=== PATIENT | female | born 1940 | race Caucasian/White ===

== ENCOUNTER 2023-06-01 16:15 | Emergency (ER) | payer MEDICARE, OTHER, SELFPAY ==
[2023-06-01 16:18] VITALS: BP 114/87
[2023-06-01 16:36] LABS: % Basophils 0.6 % (0-2); % Eosinophils 2.6 % (0-6); % Immature Granulocytes 0.4 % (0-0.5); % Monocytes 9.2 % (1.7-9.3); % Neutrophils 54.2 % (42.2-75.2); Absolute Eosinophils 0.1 10^3/uL (0-0.7); Absolute Lymphocytes 1.7 10^3/uL (1.2-3.4); Absolute Monocytes 0.5 10^3/uL (0.1-0.6); Absolute Neutrophils 2.8 10^3/uL (1.4-6.5); Hemoglobin 15.1 g/dL (12.0-16.0); Mean Corp Hgb Conc. 35.1 g/dL (33.0-37.0); Mean Corpuscular Hgb 30.4 pg (27.0-31.0); Mean Corpuscular Volume 86.5 fL (81.0-99.0); Mean Platelet Volume 9.4 fL (7.4-10.4); Nucleated Red Blood Cells % 0 %; Platelet Count 177 10^3/uL (130-400); Red Blood Cell Count 4.97 10^6/uL (4.20-5.40); Red Cell Dist. Width 13.5 % (11.5-14.5); White Blood Cell Count 5.1 10^3/uL (4.8-10.8)
[2023-06-01 16:49] LABS: ALT (SGPT) 31 U/L (0-35); AST (SGOT) 42 U/L (14-36); Albumin 4.5 g/dl (3.5-5.0); Alkaline Phosphatase 86 U/L (38-126); Blood Urea Nitrogen 27 mg/dl (7-17); Calcium 9.2 mg/dl (8.4-10.2); Carbon Dioxide 29 mmol/L (22-30); Chloride 103 mmol/L (98-107); Glucose 126 mg/dl (70-99); Potassium 3.7 mmol/L (3.5-5.1); Sodium 137 mmol/L (135-145); Total Protein 7.5 g/dl (6.3-8.2); eGFR > 60.00
[2023-06-01 17:42] VITALS: BMI 23.8
[2023-06-01 17:45] VITALS: BP 152/55
[2023-06-01] MEDS: NSS 500 IV (19:12)
--- NOTE | 2023-06-01 20:58 | ED.GENMED ---
History of Present Illness
General
Chief Complaint: Rectal Bleeding
Source: patient
Exam Limitations: none
Time Seen by Provider: 06/01/23 17:55
Nursing documentation reviewed up to this point in time: agreed with
Travel History
Have you had any contact with someone who has COVID-19?: No
Do you have any symptoms of coronavirus? Fever > 100 degrees, chills, cough, shortness of breath, sore throat, loss of taste or smell, muscle aches, or headache?: No
History of Present Illness
History of Present Illness:
PT IS A 82 Y/O F
h/o chronic ocnstipation/bowel issues,
previous SBO, divertic, IBS
followed by GI
cad with stents, cabg, pe not anticoagulated.
here with black stool for about 2 weeks
but in the past 1 week she has had some trouble controlling her bowels
usually she has some constipation but she has had more loose bowels and troule getting to he bathroom in time
sounds as if the gave her a dose of immodium and pepto together a few days ago
she gets an intermittent crampy lower abd pain at times
because the stool was dark, they called pcp who recommended she come in
Past History
Past History
ED Past Medical History: CAD, HTN and Other (irritable bowel, diverticulosis/diverticulitis, DVT, GI bleed)
ED Past Surgical History: Appendectomy, Cardiac (CABG 1997), Cholecystectomy, Orthopedic (chronic bilateral 'knee problems' sees Dr. Sanon.) and Other (has had 5 cardiac stents)
Social History
Tobacco: Non-smoker
Alcohol: None
Drug: None
Personal:
Living: with family
Employment: Retired
Family History
Family History: Other (Noncontributory)
Review of Systems
Review of Systems
Allergies reviewed?: Yes
All Other Systems: Not applicable
Phy Exam
Physical Exam
Physical Exam:
GENERAL: Alert , in no apparent distress
EYE: pupils equal and reactive
NECK: Supple
ENT: o/p clr, mmm.
CARDIAC: Regular rate and rhythm .
LUNGS: Clear breath sounds bilaterally, no acute respiratory distress, no wheezes/rales/rhonchi
ABDOMEN: Soft, without focal tenderness, no r/g, no cvat, normal bowel sounds
rectal: dark brown stool HEME NEGATIVE
NEUROLOGICAL: Alert and oriented, no focal neuro deficits
SKIN: Warm and dry, skin intact.
MUSCULOSKELETAL: No edema, well perfused. neg katelynn's sign
PSYCH: Normal and appropriate interaction.
Course
Orders/Labs/Results
Orders:
Orders
06/01/23 16:27
Complete Blood Count/With Diff Urgent
Comprehensive Metabolic Panel Urgent
06/01/23 18:55
CT Abd/Pel (IV only)-DH only Urgent
Comment:
Reason For Exam: crampy lower abd pain and dark stool
0.9% Sodium Chloride 500 ml [Nss] 500 ml IV BOLUS
Abnormal Lab Results
06/01/23
16:27
BUN 27 H mg/dl
(7-17)
Glucose 126 H mg/dl
(70-99)
AST 42 H U/L
(14-36)
06/01/23 16:27
06/01/23 16:27
Vital Signs
Initial and Last Documented VS:
Initial Vital Signs
Temp Pulse Resp BP Pulse Ox
98.3 F 66 16 114/87 98
06/01/23 16:18 06/01/23 16:18 06/01/23 16:18 06/01/23 16:18 06/01/23 16:18
Last Documented Vital Signs
Temp Pulse Resp BP Pulse Ox
98.1 F 62 20 159/69 97
06/01/23 22:00 06/01/23 22:00 06/01/23 22:00 06/01/23 22:00 06/01/23 22:00
MDM/Problems Addressed
Differential Diagnosis Includes:
rectal bleeding, PUD, IBS, colitis, divertic
MDM/Problems Addressed:
82 y/o F with h/o chronic constipation/IBS
here with black stool for a few weeks
looser than normla
tried a dose of pepto and imodium
no incontinence really but cannot sometimes make it to the bathroom on time
no urinary incintonence, fever, distention, vomiting, fever
pt is not anticoagulated
on exam she is well apearing
she has dark stool which is HEME NEG
hg is [address] scan showed mod stool in colon, diverticulosis without itisi
suepcte pt is having leakage of stool around her constipation
pt concnered that she isn't able to get appt with her GI
i reached out to dr mckee who will get office a note about it
d/c home
*Critical Care Note
Total Time (30-74mins, 75-104mins- exclusive of procedures): Not Applicable
ED Attending Note
-
Portions of this chart may have been created with voice recognition software.� Occasional wrong word or��sound alike� substitutions may have occurred due to the inherent limitations of voice recognition software.
Discharge Plan
Departure
Patient Disposition: Home (Routine Discharge)
Date of Disposition: 06/01/23
Time of Disposition: 21:51
Patient with high blood pressure during this ER visit?: No
Condition: Fair
Covid-19: Not Applicable
Discharge Problem:
Constipation
Instructions: Constipation, Adult (DC)
Prescriptions:
No Action
Acebutolol
400 mg PO DAILY
Amlodipine
10 mg PO DAILY
Moo
81 mg PO DAILY
Hydrochlorothiazide
50 mg PO DAILY
Lipitor
80 mg PO DAILY
Polyethylene Glycol
1 dose PO PRN PRN (Reason: constipation)
Patient Comments:
pt takes 3350
hydrocodone-acetaminophen [Vicodin] 1 EACH tablet
1 tab PO Q6HPRN PRN (Reason: right knee and hip pain) Qty: 6 0RF
multivitamin [Daily Multiple] 1 EACH tablet
1 ea PO DAILY
pantoprazole 40 MG tablet,delayed release (DR/EC)
40 mg PO DAILY Qty: 30 0RF
Referrals:
NONE,* [Active] -
Activity Restrictions/Additional Instructions:
WE ARE NOT SURE WHY YOU HAVE DARK STOOL
IT TESTED NEGATIVE FOR BLOOD
YOUR CAT SCAN SHOWS NO BOWEL OBSTRUTION BUT YOU HAVE A LOT OF STOOL IN YOUR COLON
YOU HAVE DIVERTICULOSIS BUT NOT DIVERTICULIITIS
THERE WERE OTHER INCIDENTAL FINDINGS ON YOUR CAT SCAN THAT CAN BE FOLLOWED UP OUTPATIENT
I SPOKE WITH DR. MCKEE FROM GI TO GET MESSAGE TO STAFF TO GET YOU AN APPOINTMENT
RETURN FOR ANY CONCERNS.
KEEP TAKING METAMUCIL ONCE A DAY.
Interventions
Interventions:
*Risk Screen - Suicide Last Done: 06/01/23 17:43
*General Assessment Last Done: 06/01/23 17:43
*Neglect/Abuse Screening Last Done: 06/01/23 17:43
ED- Fall Risk Assessment Last Done: 06/01/23 17:43
*ED COVID-19 Vaccine History Last Done: 06/01/23 16:18
*Nursing Disposition Last Done: 06/01/23 22:08
CP-Fotgkg-Fbjnktsojp Assessment Last Done: 06/01/23 17:45
ED- Cardiac Assessment Last Done: 06/01/23 17:45
ED- Pulmonary Assessment Last Done: 06/01/23 17:45
Discharge Date and Time
Discharge Date/Time: 06/01/23 22:17
[2023-06-01 22:00] VITALS: BP 159/69
== END 2023-06-01 22:17 | disposition home or self-care (01) ==
LOC: EMR 16:15
PROVIDERS: Emergency Medicine; EMERGENCY PHYSICIAN Student in an Organized Health Care Education/Training Program; FAMILY PHYSICIAN Family Medicine
DX: K59.00 Constipation, unspecified (principal)
CPT/HCPCS: 99285; 96360; 74177; 80053; 85025; 96374; Q9967

== ENCOUNTER 2023-06-09 09:34 | Emergency (ER) | payer MEDICARE, OTHER, SELFPAY ==
[2023-06-09] VITALS (7 sets, daily range): BP systolic 124–183; BP diastolic 50–75
--- NOTE | 2023-06-09 10:00 | ED.GENMED ---
History of Present Illness
<DO Ubaldo Pina Filed: 06/09/23 13:34>
General
Chief Complaint: Abdominal Symptoms
Source: patient, spouse and family
Time Seen by Provider: 06/09/23 09:37
Travel History
Have you had any contact with someone who has COVID-19?: Unable to Answer
Do you have any symptoms of coronavirus? Fever > 100 degrees, chills, cough, shortness of breath, sore throat, loss of taste or smell, muscle aches, or headache?: Unable to Answer
History of Present Illness
History of Present Illness:
82-year-old female presents to the emergency room complaining of crampy abdominal pain, nausea and diarrhea. Patient states she has loose stool frequently through the day. Has been describes cycles where she has an urgency to move her bowels 3 or
4 times an hour. She then can go for some time without another bowel movement. She is having incontinence of stool because she cannot make it to the bathroom when she has the urge to go. No fever or chills. Patient also has sore throat with a
bad taste in her mouth. Does not seem that she is actually vomiting but rather just feels quite nauseous. Patient had an appointment at gastroenterology today which was a short-term follow-up appointment from an ER visit last week but
unfortunately the patient came here rather than going to that appointment.
Past History
<DO Ubaldo Pina Filed: 06/09/23 13:34>
Past History
ED Past Medical History: CAD, HTN and Other (irritable bowel, diverticulosis/diverticulitis, DVT, GI bleed)
ED Past Surgical History: Appendectomy, Cardiac (CABG 1997), Cholecystectomy, Orthopedic (chronic bilateral 'knee problems' sees Dr. Sanon.) and Other (has had 5 cardiac stents)
Social History
Tobacco: Non-smoker
Alcohol: None
Drug: None
Personal:
Living: with family
Employment: Retired
Family History
Family History: Other (Noncontributory)
Phy Exam
<Kuldeep Draper, DO - Last Filed: 06/09/23 13:34>
Physical Exam
Physical Exam:
General: Awake, Alert, Oriented X3. No acute distress.
Vitals: unremarkable
Head: Atraumatic
Eyes: Pupils equal, EOMI
Throat: Airway intact, no exudates
Neck: Trachea midline
Lungs: Clear and equal b/l
Heart: Regular rate, no murmurs
Abd: Soft, Nontender, No pulsatile mass
Neuro: Nonfocal
Skin: Warm, dry, no rash
Extremities: pulses equal b/l, no edema
Course
<Kuldeep Draper, DO - Last Filed: 06/09/23 13:34>
Orders/Labs/Results
Orders:
Orders
06/09/23 09:57
STOOL [C difficile Antigen & Toxins] Urgent
AMY Source: Feces/Stool
Specimen Description:
Stool Culture Urgent
AMY Source: Feces/Stool
Specimen Description:
06/09/23 09:58
0.9% Sodium Chloride 1000 ml [Nss] 1,000 ml IV BOLUS
06/09/23 10:06
COVID-19 Antigen Urgent
Source: Nasal Swab
Complete Blood Count/With Diff Urgent
Comprehensive Metabolic Panel Urgent
Influenza A+B Rapid Molecular Urgent
AMY Source: Nasal Swab
Specimen Description:
Ondansetron Injectable [Zofran] 4 mg .ROUTE .[facility]
06/09/23 11:16
CR Abdomen - 1 View Urgent
Comment:
Reason For Exam: abd pain
06/09/23 13:27
Case Management Consult ONCE
Case Management Consult: Discharge Planning
Abnormal Lab Results
06/09/23
10:06
WBC 3.8 L 10^3/uL
(4.8-10.8)
Absolute Lymphs (auto) 1.0 L 10^3/uL
(1.2-3.4)
Potassium 3.4 L mmol/L
(3.5-5.1)
BUN 21 H mg/dl
(7-17)
Creatinine 0.5 L mg/dL
(0.6-1.0)
Glucose 121 H mg/dl
(70-99)
Total Bilirubin 1.4 H mg/dl
(0.2-1.3)
06/09/23 10:06
06/09/23 10:06
Vital Signs
Initial and Last Documented VS:
Initial Vital Signs
BP Pulse Ox
183/75 98
06/09/23 09:37 06/09/23 09:37
Last Documented Vital Signs
Temp Pulse Resp BP Pulse Ox
98.2 F 60 17 165/75 96
06/09/23 09:41 06/09/23 13:30 06/09/23 13:30 06/09/23 13:00 06/09/23 13:11
<Jack Daigle, DO - Last Filed: 06/09/23 15:12>
Orders/Labs/Results
Orders:
Orders
06/09/23 09:57
STOOL [C difficile Antigen & Toxins] Urgent
AMY Source: Feces/Stool
Specimen Description:
Stool Culture Urgent
AMY Source: Feces/Stool
Specimen Description:
06/09/23 09:58
0.9% Sodium Chloride 1000 ml [Nss] 1,000 ml IV BOLUS
06/09/23 10:06
COVID-19 Antigen Urgent
Source: Nasal Swab
Complete Blood Count/With Diff Urgent
Comprehensive Metabolic Panel Urgent
Influenza A+B Rapid Molecular Urgent
AMY Source: Nasal Swab
Specimen Description:
Ondansetron Injectable [Zofran] 4 mg .ROUTE .[facility]
06/09/23 11:16
CR Abdomen - 1 View Urgent
Comment:
Reason For Exam: abd pain
06/09/23 13:27
Case Management Consult ONCE
Case Management Consult: Discharge Planning
Abnormal Lab Results
06/09/23
10:06
WBC 3.8 L 10^3/uL
(4.8-10.8)
Absolute Lymphs (auto) 1.0 L 10^3/uL
(1.2-3.4)
Potassium 3.4 L mmol/L
(3.5-5.1)
BUN 21 H mg/dl
(7-17)
Creatinine 0.5 L mg/dL
(0.6-1.0)
Glucose 121 H mg/dl
(70-99)
Total Bilirubin 1.4 H mg/dl
(0.2-1.3)
06/09/23 10:06
06/09/23 10:06
Vital Signs
Initial and Last Documented VS:
Initial Vital Signs
BP Pulse Ox
183/75 98
06/09/23 09:37 06/09/23 09:37
Last Documented Vital Signs
Temp Pulse Resp BP Pulse Ox
98.2 F 60 17 165/75 96
06/09/23 09:41 06/09/23 13:30 06/09/23 13:30 06/09/23 13:00 06/09/23 13:11
Alexeylt;Jack Daigle DO - Last Filed: 06/09/23 15:12>
*Critical Care Note
Total Time (30-74mins, 75-104mins- exclusive of procedures): Not Applicable
<Jack Zurita Pilo, DO - Last Filed: 06/09/23 15:12>
Update Note
Update Note:
I was told by RN that family did not want to wait for care management. They went to leave now. I reviewed the x-ray which shows a nonspecific bowel gas pattern as well as hardware in the lower spine.
ED Attending Note
<Kuldeep Draper, DO - Last Filed: 06/09/23 13:34>
-
Portions of this chart may have been created with voice recognition software.� Occasional wrong word or��sound alike� substitutions may have occurred due to the inherent limitations of voice recognition software.
Discharge Plan
Departure
Patient Disposition: Home (Routine Discharge)
Date of Disposition: 06/09/23
Time of Disposition: 15:10
Patient with high blood pressure during this ER visit?: Yes
Condition: Good
Discharge Problem:
Irritable bowel syndrome (IBS), Abdominal cramps
Instructions: Irritable bowel syndrome, BLOOD PRESSURE
Prescriptions:
No Action
Acebutolol
400 mg PO DAILY
Amlodipine
10 mg PO DAILY
Moo
81 mg PO DAILY
Hydrochlorothiazide
50 mg PO DAILY
Lipitor
80 mg PO DAILY
Polyethylene Glycol
1 dose PO PRN PRN (Reason: constipation)
Patient Comments:
pt takes 3350
hydrocodone-acetaminophen [Vicodin] 1 EACH tablet
1 tab PO Q6HPRN PRN (Reason: right knee and hip pain) Qty: 6 0RF
multivitamin [Daily Multiple] 1 EACH tablet
1 ea PO DAILY
pantoprazole 40 MG tablet,delayed release (DR/EC)
40 mg PO DAILY Qty: 30 0RF
Referrals:
Yael Rosales DO [Family Provider] -
Activity Restrictions/Additional Instructions:
Return here if worse.
Interventions
Interventions:
*Risk Screen - Suicide Last Done: 06/09/23 09:47
*General Assessment Last Done: 06/09/23 09:41
*Neglect/Abuse Screening Last Done: 06/09/23 09:48
ED- Fall Risk Assessment Last Done: 06/09/23 09:48
*ED COVID-19 Vaccine History Last Done: 06/09/23 09:41
MC-Ulehbm-Lnsodqhari Assessment Last Done: 06/09/23 09:48
[2023-06-09 10:35] LABS: % Basophils 0.8 % (0-2); % Eosinophils 2.6 % (0-6); % Immature Granulocytes 0.3 % (0-0.5); % Lymphocytes 26.7 % (20.5-51.1); % Monocytes 7.3 % (1.7-9.3); % Neutrophils 62.3 % (42.2-75.2); Absolute Eosinophils 0.1 10^3/uL (0-0.7); Absolute Monocytes 0.3 10^3/uL (0.1-0.6); Absolute Neutrophils 2.4 10^3/uL (1.4-6.5); Hematocrit 41.5 % (37.0-47.0); Hemoglobin 14.8 g/dL (12.0-16.0); Mean Corp Hgb Conc. 35.7 g/dL (33.0-37.0); Mean Corpuscular Hgb 30.9 pg (27.0-31.0); Mean Corpuscular Volume 86.6 fL (81.0-99.0); Mean Platelet Volume 9.8 fL (7.4-10.4); Nucleated Red Blood Cells % 0 %; Platelet Count 160 10^3/uL (130-400); Red Blood Cell Count 4.79 10^6/uL (4.20-5.40); Red Cell Dist. Width 13.5 % (11.5-14.5); White Blood Cell Count 3.8 10^3/uL (4.8-10.8)
[2023-06-09 10:40] LABS: ALT (SGPT) 27 U/L (0-35); AST (SGOT) 35 U/L (14-36); Alkaline Phosphatase 91 U/L (38-126); Blood Urea Nitrogen 21 mg/dl (7-17); Calcium 9.3 mg/dl (8.4-10.2); Carbon Dioxide 30 mmol/L (22-30); Chloride 103 mmol/L (98-107); Glucose 121 mg/dl (70-99); Potassium 3.4 mmol/L (3.5-5.1); Sodium 141 mmol/L (135-145); Total Bilirubin 1.4 mg/dl (0.2-1.3); Total Protein 6.8 g/dl (6.3-8.2); eGFR > 60.00
[2023-06-09 10:41] LABS: COVID-19 Antigen Negative (Negative)
[2023-06-09] MEDS: NSS 1000 IV (11:32)
--- NOTE | 2023-06-09 15:58 | CM ---
Addendum entered by Cinthia Tan RN 06/09/23 16:02:
Patient returned call. Spoke with patient's daughter. They would like VN for the patient. VN selected by family. Referral placed.
Original Note:
Patient left without speaking to CM. CM was following for test results prior to speaking with the patient. Call placed and message left for the patient.
== END 2023-06-09 15:16 | disposition home or self-care (01) ==
LOC: EMR 09:34
PROVIDERS: EMERGENCY PHYSICIAN Emergency Medicine; FAMILY PHYSICIAN Family Medicine
DX: K58.9 Irritable bowel syndrome, unspecified (principal); R10.9 Unspecified abdominal pain; R15.9 Full incontinence of feces; Z11.52 Encounter for screening for COVID-19; I25.10 Atherosclerotic heart disease of native coronary artery without angina pectoris; I10 Essential (primary) hypertension; K57.90 Diverticulosis of intestine, part unspecified, without perforation or abscess without bleeding; Z95.1 Presence of aortocoronary bypass graft; Z95.5 Presence of coronary angioplasty implant and graft; Z86.718 Personal history of other venous thrombosis and embolism; Z90.49 Acquired absence of other specified parts of digestive tract; Z88.8 Allergy status to other drugs, medicaments and biological substances; Z91.011 Allergy to milk products
CPT/HCPCS: 99284; 96360; 74018; 80053; 85025; 87502; 87811

== ENCOUNTER 2023-12-14 15:59 | Emergency (ER) | payer MEDICARE, OTHER, SELFPAY ==
[2023-12-14 16:02] VITALS: BP 154/66
[2023-12-14 16:44] LABS: % Basophils 0.5 % (0-2); % Eosinophils 2.3 % (0-6); % Immature Granulocytes 0.2 % (0-0.5); % Lymphocytes 28.7 % (20.5-51.1); % Monocytes 9.8 % (1.7-9.3); % Neutrophils 58.5 % (42.2-75.2); Absolute Eosinophils 0.1 10^3/uL (0-0.7); Absolute Lymphocytes 1.2 10^3/uL (1.2-3.4); Absolute Monocytes 0.4 10^3/uL (0.1-0.6); Absolute Neutrophils 2.5 10^3/uL (1.4-6.5); Hematocrit 37.9 % (37.0-47.0); Hemoglobin 13.2 g/dL (12.0-16.0); Mean Corp Hgb Conc. 34.8 g/dL (33.0-37.0); Mean Corpuscular Hgb 30.8 pg (27.0-31.0); Mean Corpuscular Volume 88.3 fL (81.0-99.0); Mean Platelet Volume 9.8 fL (7.4-10.4); Nucleated Red Blood Cells % 0 %; Platelet Count 168 10^3/uL (130-400); Red Blood Cell Count 4.29 10^6/uL (4.20-5.40); Red Cell Dist. Width 13.7 % (11.5-14.5); White Blood Cell Count 4.3 10^3/uL (4.8-10.8)
[2023-12-14 16:56] LABS: APTT 30.6 Sec (23.4-35.0)
[2023-12-14 17:05] LABS: ALT (SGPT) 22 U/L (0-35); AST (SGOT) 34 U/L (14-36); Albumin 4.1 g/dl (3.5-5.0); Alkaline Phosphatase 82 U/L (38-126); Blood Urea Nitrogen 27 mg/dl (7-17); Calcium 9.6 mg/dl (8.4-10.2); Carbon Dioxide 30 mmol/L (22-30); Chloride 103 mmol/L (98-107); Glucose 110 mg/dl (70-99); Potassium 3.9 mmol/L (3.5-5.1); Sodium 140 mmol/L (135-145); Total Bilirubin 0.8 mg/dl (0.2-1.3); Total Protein 6.6 g/dl (6.3-8.2); eGFR > 60.00
[2023-12-14 17:16] LABS: Troponin I < 0.012 ng/ml
--- NOTE | 2023-12-14 18:46 | ED.GENMED ---
History of Present Illness
General
Chief Complaint: Chest Pain
Time Seen by Provider: 12/14/23 18:04
History of Present Illness
History of Present Illness:
83-year-old female with history of coronary artery disease status post CABG presents to the emergency department for evaluation of left-sided chest pain ongoing for the past 2 days. She is currently asymptomatic. She states 'I think I just did too
much'. When questioned she states she does not have any pain with exertion or walking but does note that while 'doing a lot around the house' the pain began 2 days ago. Did have pain earlier today that is since resolved. No shortness of breath,
denies fevers or chills. 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
Past History
Past History
ED Past Medical History: CAD, HTN and Other (irritable bowel, diverticulosis/diverticulitis, DVT, GI bleed)
ED Past Surgical History: Appendectomy, Cardiac (CABG 1997), Cholecystectomy, Orthopedic (chronic bilateral 'knee problems' sees Dr. Sanon.) and Other (has had 5 cardiac stents)
Social History
Tobacco: Non-smoker
Alcohol: None
Drug: None
Personal:
Living: with family
Employment: Retired
Family History
Family History: Other (Noncontributory)
Review of Systems
Review of Systems
Allergies reviewed?: Yes
All Other Systems: ROS reviewed and negative except as documented in HPI and ROS
Phy Exam
Physical Exam
Physical Exam:
GEN: Well appearing, NAD, WDWN
Eyes: PERRLA, EOMs intact, no scleral icterus
HENT: NCAT, oral mucosa moist
Lungs: CTAB, no wheezes, rales, rhonchi, normal chest wall excursion
Cardiac: RRR, no M/R/G, no peripheral edema. Radial pulses 2+ bilat
Neuro: AO x 3
MSK: No gross deformity or ecchymosis. No edema. No digital clubbing
Skin: No rashes, petechiae. Normal color, no pallor or jaundice.
Psych: Calm, cooperative, proper hygiene
Scores
Heart Score for Chest Pain Patients
STEMI patient?: No
History: Slightly or Non-Suspicious
ECG: Nonspecific Repolarization
Age: >/= 65 years
Risk Factors: >/= 3 Risk Factors or History of CAD
Troponin: </= Normal Limit
Heart Score for Chest Pain Patients: 5
Heart Score Risk: 20.3% MACE over next 6 weeks
Course
Orders/Labs/Results
Orders:
Orders
12/14/23
Electrocardiogram (*1) Stat
Reason for Study: Chest Pain
Comment: DONE
12/14/23 16:28
Complete Blood Count/With Diff Urgent
Comprehensive Metabolic Panel Urgent
Protime/PTT Urgent
Troponin I Urgent
12/14/23 18:17
CR Chest - 2 Views Urgent
Comment:
Reason For Exam: chest pain
Abnormal Lab Results
12/14/23
16:28
WBC 4.3 L 10^3/uL
(4.8-10.8)
Monocytes % 9.8 H %
(1.7-9.3)
BUN 27 H mg/dl
(7-17)
Glucose 110 H mg/dl
(70-99)
12/14/23 16:28
12/14/23 16:28
Vital Signs
Initial and Last Documented VS:
Initial Vital Signs
Temp Pulse Resp BP Pulse Ox
98.1 F 52 18 154/66 95
12/14/23 16:02 12/14/23 16:02 12/14/23 16:02 12/14/23 16:02 12/14/23 16:02
Last Documented Vital Signs
Temp Pulse Resp BP Pulse Ox
98.1 F 52 18 154/66 95
12/14/23 16:02 12/14/23 16:02 12/14/23 16:02 12/14/23 16:02 12/14/23 16:02
MDM/Problems Addressed
MDM/Problems Addressed:
Chest x-ray reassuring. EKG is baseline compared to prior. She has no pain while present in the emergency department. Does not appear to be clearly exertional symptoms nevertheless given her high risk for coronary disease will refer her through
the chest pain hotline for close cardiac follow-up
Comment
Comment:
EKG independently interpreted by me shows a sinus bradycardia at a rate of [address] changes concerning for ischemia, there is a first-degree AV block and QTc is 391
*Critical Care Note
Total Time (30-74mins, 75-104mins- exclusive of procedures): Not Applicable
ED Attending Note
-
Portions of this chart may have been created with voice recognition software.� Occasional wrong word or��sound alike� substitutions may have occurred due to the inherent limitations of voice recognition software.
Discharge Plan
Departure
Patient Disposition: Home (Routine Discharge)
Date of Disposition: 12/14/23
Time of Disposition: 18:48
Patient with high blood pressure during this ER visit?: Yes
Discharge Problem:
Chest pain
Instructions: Chest Pain DCA Follow Up
Prescriptions:
No Action
Acebutolol
400 mg PO DAILY
Amlodipine
10 mg PO DAILY
Moo
81 mg PO DAILY
Hydrochlorothiazide
50 mg PO DAILY
Lipitor
80 mg PO DAILY
Polyethylene Glycol
1 dose PO PRN PRN (Reason: constipation)
Patient Comments:
pt takes 3350
hydrocodone-acetaminophen [Vicodin] 1 EACH tablet
1 tab PO Q6HPRN PRN (Reason: right knee and hip pain) Qty: 6 0RF
multivitamin [Daily Multiple] 1 EACH tablet
1 ea PO DAILY
pantoprazole 40 MG tablet,delayed release (DR/EC)
40 mg PO DAILY Qty: 30 0RF
Referrals:
Yael Rosales DO [Family Provider] -
Interventions
Interventions:
*Risk Screen - Suicide Last Done: 12/14/23 16:02
*General Assessment Last Done: 12/14/23 16:02
*Neglect/Abuse Screening Last Done: 12/14/23 16:02
*ED COVID-19 Vaccine History Last Done: 12/14/23 16:02
*Nursing Disposition Last Done: 12/14/23 19:07
Discharge Date and Time
Discharge Date/Time: 12/14/23 19:08
Print Language: POLISH
== END 2023-12-14 19:08 | disposition home or self-care (01) ==
LOC: EMR 15:59
PROVIDERS: EMERGENCY PHYSICIAN Emergency Medicine; FAMILY PHYSICIAN Family Medicine; REFERRING PHYSICIAN Internal Medicine Interventional Cardiology
DX: R07.89 Other chest pain (principal); I44.0 Atrioventricular block, first degree; I25.10 Atherosclerotic heart disease of native coronary artery without angina pectoris; I10 Essential (primary) hypertension; K58.9 Irritable bowel syndrome, unspecified; K57.90 Diverticulosis of intestine, part unspecified, without perforation or abscess without bleeding; Z95.1 Presence of aortocoronary bypass graft; Z95.5 Presence of coronary angioplasty implant and graft; Z86.718 Personal history of other venous thrombosis and embolism; Z90.49 Acquired absence of other specified parts of digestive tract; Z88.8 Allergy status to other drugs, medicaments and biological substances; Z91.011 Allergy to milk products
CPT/HCPCS: 99283; 71046; 80053; 84484; 85025; 85610; 85730; 93005

== ENCOUNTER → 2024-01-07 12:17 | Outpatient (REF) | payer MEDICARE, OTHER, SELFPAY ==
[2024-01-07 13:03] LABS: % Basophils 0.7 % (0-2); % Eosinophils 3.9 % (0-6); % Immature Granulocytes 0.5 % (0-0.5); % Lymphocytes 26.3 % (20.5-51.1); % Monocytes 9.3 % (1.7-9.3); % Neutrophils 59.3 % (42.2-75.2); Absolute Eosinophils 0.2 10^3/uL (0-0.7); Absolute Lymphocytes 1.1 10^3/uL (1.2-3.4); Absolute Monocytes 0.4 10^3/uL (0.1-0.6); Absolute Neutrophils 2.4 10^3/uL (1.4-6.5); Hematocrit 38.8 % (37.0-47.0); Hemoglobin 13.3 g/dL (12.0-16.0); Mean Corp Hgb Conc. 34.3 g/dL (33.0-37.0); Mean Corpuscular Hgb 30.4 pg (27.0-31.0); Mean Corpuscular Volume 88.6 fL (81.0-99.0); Mean Platelet Volume 9.6 fL (7.4-10.4); Nucleated Red Blood Cells % 0 %; Platelet Count 203 10^3/uL (130-400); Red Blood Cell Count 4.38 10^6/uL (4.20-5.40); Red Cell Dist. Width 13.6 % (11.5-14.5); White Blood Cell Count 4.1 10^3/uL (4.8-10.8)
[2024-01-07 13:57] LABS: ALT (SGPT) 19 U/L (0-35); AST (SGOT) 31 U/L (14-36); Albumin 4.3 g/dl (3.5-5.0); Alkaline Phosphatase 83 U/L (38-126); Blood Urea Nitrogen 26 mg/dl (7-17); Calcium 9.7 mg/dl (8.4-10.2); Carbon Dioxide 35 mmol/L (22-30); Chloride 100 mmol/L (98-107); Glucose 101 mg/dl (70-99); HDL Cholesterol 73 mg/dl; LDL Cholesterol, Calculated 75 mg/dl; Potassium 4.5 mmol/L (3.5-5.1); Sodium 143 mmol/L (135-145); Total Bilirubin 1.1 mg/dl (0.2-1.3); Total Cholesterol 169 mg/dl (50-199); Triglyceride 105 mg/dl (10-149); Very Low Density Lipoprotein 21 mg/dl (0-30); eGFR > 60.00
[2024-01-07 14:03] LABS: Vitamin D, 25-OH*** 32.3 ng/mL (30-80)
[2024-01-07 14:16] LABS: TSH 1.56 uIU/ml (0.47-4.68)
[2024-01-07 15:14] LABS: Vitamin B12 582 pg/ml (239-931)
== END ==
LOC: REG 12:17
PROVIDERS: ATTENDING PHYSICIAN Family Medicine
DX: K59.04 Chronic idiopathic constipation (principal); K44.9 Diaphragmatic hernia without obstruction or gangrene; R41.3 Other amnesia; Z13.220 Encounter for screening for lipoid disorders; E55.9 Vitamin D deficiency, unspecified; I10 Essential (primary) hypertension
CPT/HCPCS: 36415; 80053; 80061; 82306; 82607; 84439; 84443; 85025

== ENCOUNTER → 2024-02-10 11:53 | Outpatient (REF) | payer MEDICARE, OTHER, SELFPAY | LOC: PAVMRI 11:53 | PROVIDERS: ATTENDING PHYSICIAN Family Medicine | DX: R41.89 Other symptoms and signs involving cognitive functions and awareness (principal) | CPT/HCPCS: 70553; A9575 ==

== ENCOUNTER 2024-04-28 12:24 | Emergency (ER) | payer MEDICARE, OTHER, SELFPAY ==
[2024-04-28 12:27] VITALS: BP 162/74
[2024-04-28 12:50] LABS: % Basophils 0.3 % (0-2); % Eosinophils 0.5 % (0-6); % Immature Granulocytes 0.2 % (0-0.5); % Lymphocytes 6.7 % (20.5-51.1); % Monocytes 5.7 % (1.7-9.3); % Neutrophils 86.6 % (42.2-75.2); Absolute Eosinophils 0.1 10^3/uL (0-0.7); Absolute Lymphocytes 0.6 10^3/uL (1.2-3.4); Absolute Monocytes 0.5 10^3/uL (0.1-0.6); Absolute Neutrophils 8.3 10^3/uL (1.4-6.5); Hemoglobin 14.2 g/dL (12.0-16.0); Mean Corp Hgb Conc. 33.8 g/dL (33.0-37.0); Mean Corpuscular Hgb 29.8 pg (27.0-31.0); Mean Corpuscular Volume 88.2 fL (81.0-99.0); Mean Platelet Volume 9.5 fL (7.4-10.4); Nucleated Red Blood Cells % 0 %; Platelet Count 163 10^3/uL (130-400); Red Blood Cell Count 4.76 10^6/uL (4.20-5.40); Red Cell Dist. Width 13.2 % (11.5-14.5); White Blood Cell Count 9.6 10^3/uL (4.8-10.8)
[2024-04-28 13:00] VITALS: BP 134/49
[2024-04-28 13:07] LABS: ALT (SGPT) 24 U/L (0-35); AST (SGOT) 38 U/L (14-36); Albumin 4.5 g/dl (3.5-5.0); Alkaline Phosphatase 92 U/L (38-126); Blood Urea Nitrogen 19 mg/dl (7-17); Calcium 9.3 mg/dl (8.4-10.2); Carbon Dioxide 33 mmol/L (22-30); Chloride 98 mmol/L (98-107); Glucose 165 mg/dl (70-99); Lipase 47 U/L (23-300); Potassium 3.3 mmol/L (3.5-5.1); Sodium 136 mmol/L (135-145); Total Bilirubin 1.4 mg/dl (0.2-1.3); Total Protein 7.2 g/dl (6.3-8.2); eGFR > 60.00
--- NOTE | 2024-04-28 13:09 | ED.GENMED ---
History of Present Illness
General
Chief Complaint: Abdominal Symptoms
Time Seen by Provider: 04/28/24 12:43
History of Present Illness
History of Present Illness:
83-year-old female with history of coronary artery disease, hypertension, hyperlipidemia presents to the emergency department for evaluation of acute onset of chest/epigastric discomfort followed by nausea vomiting and diarrhea beginning acutely
this morning. Multiple loose bowel movements today. Received IV fluids and Zofran prehospital. No ill contacts at home. Prior abdominal surgery includes appendectomy and cholecystectomy
Past History
Past History
ED Past Medical History: CAD, HTN and Other (irritable bowel, diverticulosis/diverticulitis, DVT, GI bleed)
ED Past Surgical History: Appendectomy, Cardiac (CABG 1997), Cholecystectomy, Orthopedic (chronic bilateral 'knee problems' sees Dr. Sanon.) and Other (has had 5 cardiac stents)
Social History
Tobacco: Non-smoker
Alcohol: None
Drug: None
Personal:
Living: with family
Employment: Retired
Family History
Family History: Other (Noncontributory)
Review of Systems
Review of Systems
Allergies reviewed?: Yes
All Other Systems: ROS reviewed and negative except as documented in HPI and ROS
Phy Exam
Physical Exam
Physical Exam:
GEN: Well appearing, NAD, WDWN
HEENT: Oral mucosa moist, no scleral icterus
Cardiac: Bradycardic, regular, no murmur
Lung: No respiratory distress, no tachypnea
Abdomen: Soft, generalized tenderness, no focal tenderness, no rigidity
MSK: No gross deformity or injuries
Skin: Good color, no pallor or jaundice, no rashes
Neuro: AO x3, moves all extremities freely
Psych: Calm, cooperative
Course
Orders/Labs/Results
Orders:
Orders
04/28/24 12:27
Electrocardiogram (*1) Urgent
Reason for Study: Chest Pain
EKG- Treatment ONCE
04/28/24 12:41
Complete Blood Count/With Diff Urgent
Comprehensive Metabolic Panel Urgent
Lipase Urgent
Troponin I Urgent
04/28/24 13:09
0.9% Sodium Chloride 1000 ml [Nss] 1,000 ml IV BOLUS
Potassium Chloride [KCl] 20 meq PO NOW STA
Abnormal Lab Results
04/28/24
12:41
Absolute Neuts (auto) 8.3 H 10^3/uL
(1.4-6.5)
Absolute Lymphs (auto) 0.6 L 10^3/uL
(1.2-3.4)
Neutrophils % 86.6 H %
(42.2-75.2)
Lymphocytes % 6.7 L %
(20.5-51.1)
Potassium 3.3 L mmol/L
(3.5-5.1)
Carbon Dioxide 33 H mmol/L
(22-30)
BUN 19 H mg/dl
(7-17)
Creatinine 0.5 L mg/dL
(0.6-1.0)
Glucose 165 H mg/dl
(70-99)
Total Bilirubin 1.4 H mg/dl
(0.2-1.3)
AST 38 H U/L
(14-36)
04/28/24 12:41
04/28/24 12:41
Vital Signs
Initial and Last Documented VS:
Initial Vital Signs
Temp Pulse Resp BP Pulse Ox
97.3 F 68 18 162/74 98
04/28/24 12:27 04/28/24 12:27 04/28/24 12:27 04/28/24 12:27 04/28/24 12:27
Last Documented Vital Signs
Temp Pulse Resp BP Pulse Ox
97.3 F 56 19 130/55 97
04/28/24 12:27 04/28/24 15:30 04/28/24 15:30 04/28/24 15:00 04/28/24 15:15
MDM/Problems Addressed
MDM/Problems Addressed:
I suspect his chest pain was secondary to esophageal or gastric spasms in the setting of acute GI illness. Her pain did improve after vomiting. She was stable in the emergency department with no recurrent vomiting or diarrhea. Likely self-limited
viral syndrome, labs are reassuring and she was able to tolerate p.o. fluids in the ED. Will be discharged with antiemetics, supportive care and return parameters discussed
*Critical Care Note
Total Time (30-74mins, 75-104mins- exclusive of procedures): Not Applicable
ED Attending Note
-
Portions of this chart may have been created with voice recognition software.� Occasional wrong word or��sound alike� substitutions may have occurred due to the inherent limitations of voice recognition software.
Discharge Plan
Departure
Patient Disposition: Home (Routine Discharge)
Date of Disposition: 04/28/24
Time of Disposition: 15:25
Patient with high blood pressure during this ER visit?: No
Discharge Problem:
Gastroenteritis
Instructions: Diarrhea in teens and adults
Prescriptions:
New
ondansetron 4 mg tablet,disintegrating
4 mg PO TIDPRN PRN (Reason: nausea/vomiting) Qty: 10 0RF
No Action
Acebutolol
400 mg PO DAILY
Amlodipine
10 mg PO DAILY
Moo
81 mg PO DAILY
Hydrochlorothiazide
50 mg PO DAILY
Lipitor
80 mg PO DAILY
Polyethylene Glycol
1 dose PO PRN PRN (Reason: constipation)
Patient Comments:
pt takes 3350
hydrocodone-acetaminophen [Vicodin] 1 EACH tablet
1 tab PO Q6HPRN PRN (Reason: right knee and hip pain) Qty: 6 0RF
multivitamin [Daily Multiple] 1 EACH tablet
1 ea PO DAILY
pantoprazole 40 MG tablet,delayed release (DR/EC)
40 mg PO DAILY Qty: 30 0RF
Referrals:
Yael Rosales DO [Family Provider] -
Interventions
Interventions:
*Risk Screen - Suicide Last Done: 04/28/24 12:34
*General Assessment Last Done: 04/28/24 12:34
*Neglect/Abuse Screening Last Done: 04/28/24 12:34
ED- Fall Risk Assessment Last Done: 04/28/24 12:36
*ED COVID-19 Vaccine History Last Done: 04/28/24 12:34
*Nursing Disposition Last Done: 04/28/24 15:54
ES-Wddtsz-Girpjnfwza Assessment Last Done: 04/28/24 12:36
Discharge Date and Time
Discharge Date/Time: 04/28/24 15:54
Print Language: TURKMEN
[2024-04-28] MEDS: KCL 20 MEQ PO (13:14)
[2024-04-28] MEDS: NSS 1000 IV (13:14)
[2024-04-28 13:41] LABS: Troponin I < 0.012 ng/ml
[2024-04-28 14:00] VITALS: BP 134/54
[2024-04-28 15:00] VITALS: BP 130/55
== END 2024-04-28 15:54 | disposition home or self-care (01) ==
LOC: EMR 12:24
PROVIDERS: Student in an Organized Health Care Education/Training Program; EMERGENCY PHYSICIAN Emergency Medicine; FAMILY PHYSICIAN Family Medicine
DX: K52.9 Noninfective gastroenteritis and colitis, unspecified (principal); I25.10 Atherosclerotic heart disease of native coronary artery without angina pectoris; I10 Essential (primary) hypertension; E78.5 Hyperlipidemia, unspecified; Z86.718 Personal history of other venous thrombosis and embolism; Z90.49 Acquired absence of other specified parts of digestive tract; Z95.5 Presence of coronary angioplasty implant and graft; Z95.1 Presence of aortocoronary bypass graft
CPT/HCPCS: 99284; 96360; 80053; 83690; 84484; 85025; 93005

== ENCOUNTER → 2025-01-05 10:06 | Outpatient (REF) | payer MEDICARE, OTHER, SELFPAY ==
[2025-01-05 11:47] LABS: Hematocrit 43.2 % (37.0-47.0); Hemoglobin 14.0 g/dL (12.0-16.0); Mean Corp Hgb Conc. 32.4 g/dL (33.0-37.0); Mean Corpuscular Volume 92.3 fL (81.0-99.0); Nucleated Red Blood Cells % 0 %; Platelet Count 209 10^3/uL (130-400); Red Cell Dist. Width 14.2 % (11.5-14.5)
[2025-01-05 12:02] LABS: ALT (SGPT) 34 U/L (0-35); AST (SGOT) 38 U/L (14-36); Albumin 4.4 g/dl (3.5-5.0); Alkaline Phosphatase 75 U/L (38-126); Blood Urea Nitrogen 28 mg/dl (7-17); Calcium 9.6 mg/dl (8.4-10.2); Carbon Dioxide 33 mmol/L (22-30); Chloride 100 mmol/L (98-107); Glucose 122 mg/dl (70-99); Potassium 3.8 mmol/L (3.5-5.1); Sodium 138 mmol/L (135-145); Total Protein 7.1 g/dl (6.3-8.2); eGFR > 60.00
[2025-01-05 12:29] LABS: TSH 1.73 uIU/ml (0.47-4.68)
[2025-01-05 12:47] LABS: Vitamin B12 741 pg/ml (239-931)
[2025-01-05 17:12] LABS: Urine Character Clear (Clear)
[2025-01-05 17:21] LABS: Urine Squamous Cell 0-2 /LPF (Few)
[2025-01-05 17:22] LABS: Urine White Cell 0-2 /HPF (0-5)
== END ==
LOC: REG 10:06
PROVIDERS: ATTENDING PHYSICIAN Family Medicine
DX: F51.04 Psychophysiologic insomnia (principal); F05 Delirium due to known physiological condition; Z79.899 Other long term (current) drug therapy; R39.9 Unspecified symptoms and signs involving the genitourinary system
CPT/HCPCS: 36415; 80053; 81003; 81015; 82607; 84443; 85025; 87086